=== PATIENT | male | born 2000 | race Two or more races ===

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

== ENCOUNTER 2022-10-03 12:18 | Emergency (ER) | payer BC, OTHER ==
[~2022-10-03] VITALS: Ht 167.6 cm; Wt 75.7 kg
[2022-10-03 12:43] VITALS: BP 138/68
== END 2022-10-03 15:22 | disposition home or self-care (01) ==
LOC: ER 12:18
DX: H00.011 Hordeolum externum right upper eyelid (principal); Z88.1 Allergy status to other antibiotic agents